=== PATIENT | female | born 1940 | race Caucasian/White ===

== ENCOUNTER → 2019-03-14 | Outpatient (CLI) | payer MEDICARE, BC | LOC: M.LAB 13:43 → M.MRI 14:30 | PROVIDERS: Internal Medicine | DX: M47.814 Spondylosis without myelopathy or radiculopathy, thoracic region (principal); C50.912 Malignant neoplasm of unspecified site of left female breast; R07.89 Other chest pain; M54.6 Pain in thoracic spine; G89.29 Other chronic pain; Z79.899 Other long term (current) drug therapy; Z90.11 Acquired absence of right breast and nipple ==

== ENCOUNTER → 2020-08-14 | Outpatient (CLI) | payer MEDICARE, BC ==
[2020-08-15 15:08] LABS: ANA INTERPRETATION Negative (Negative); ANTI-SSA <0.2 AI (0.0-0.9)
== END ==
LOC: M.MRI 13:37
PROVIDERS: ATTEND Psychiatry & Neurology Neuromuscular Medicine
DX: M19.012 Primary osteoarthritis, left shoulder (principal); R25.1 Tremor, unspecified; I67.82 Cerebral ischemia; R29.898 Other symptoms and signs involving the musculoskeletal system; M54.6 Pain in thoracic spine; G89.29 Other chronic pain